=== PATIENT | female | born 1965 | race Caucasian/White ===

== ENCOUNTER 2022-07-13 21:36 | Emergency (ER) | payer OTHER, SELFPAY ==
[2022-07-13 21:41] VITALS: BP 142/86; PULSE 114; RESP 16; TEMP 36.1; O2SAT 98; BMI 37.4
--- NOTE | 2022-07-13 22:10 | CRLHL7_ITS ---
For Patients: As a result of the Cures Act, medical imaging exams and procedure reports are released immediately into your electronic medical record. You may view this report before your referring provider. If you have questions, please contact your health care provider. INDICATION: Sudden onset superior lateral calf and knee pain. COMPARISON: None available. FINDINGS: The left knee was examined with AP and lateral views for a total of two views. There is no sign of fracture or dislocation. The medial and lateral compartments are normal in height. There is a minimal suprapatellar joint effusion. No soft tissue abnormality is seen. IMPRESSION: No sign of acute osseous injury. Minimal suprapatellar joint effusion. Dictated by Suresh Alvarado MD @ 07/13/2022 11:04:16 PM (Electronically Signed)
--- NOTE | 2022-07-13 22:11 | ED_ITS ---
HPI - Extremity Injury (Lower) General Chief Complaint: Extremity Pain/Injury, Lower Stated Complaint: Left knee popped, cannot stand Time Seen by Provider: 07/13/22 22:03 History of Present Illness HPI Narrative: 57-year-old woman presenting with significant other to the emergency department complaint of left knee/lower leg pain. She has been feeling a sense of tightness in the upper outer lower leg over today and was getting assistance from a groundwater programs director to push her chair into the table when must have caught her foot a little bit causing sudden severe pain. She gestures to pain in the areas as mentioned. Hurts to flex and extend her knee. Hurts behind the knee. She does have a history of prior injury to the right knee going down/claiming a ladder when she tore meniscus. No other injuries sustained today. There was no fall. No treatments. Related Data Home Medications Medication Instructions Recorded Confirmed duloxetine 30 mg capsule,delayed mg PO 07/13/22 release omeprazole 20 mg capsule,delayed mg 07/13/22 release Previous Rx's Medication Instructions Recorded levothyroxine 137 mcg tablet 137 mcg PO QDAY #90 tabs 05/17/22 Allergies Allergy/AdvReac Type Severity Reaction Status Date / Time amoxicillin AdvReac Intermediate Nausea Verified 07/13/22 21:45 Sulfa Antibiotics Allergy Intermediate rash, Uncoded 05/18/22 15:09 nausea Clavulanate AdvReac Intermediate Nausea Uncoded 05/18/22 15:09 Review of Systems Status of ROS: Reports: 6 or more systems reviewed and unremarkable except as noted in History and below PFSH PFS Family History (Updated 05/18/22 @ 16:07 by Matti Strickland) Mother Lung cancer Other Kidney disease Social History Smoking Status: Never smoker How often do you have a drink containing alcohol: 2-3 times a week How many standard drinks containing alcohol do you have on a typical day: 3 or 4 How often do you have six or more drinks on one occasion: Less than monthly AUDIT-C Alcohol total score: 5 Non-prescribed substance use: denies use Exam Narrative: Exam Narrative: Pleasant. Seated in a wheelchair. Overweight. Well-healed scars on right knee. Skin generally tanned. No erythema. Breathing easily. Examination of the left leg/knee -- there is a generalized warmth to the knee on the left compared to the right. I thought initially there may be some defect the upper outer calf musculature but this does not feel particularly different than the right leg. Size of legs makes more subtle evaluation more difficulty think. There is no effusion in the knee. She does not have pain to palpation in the joint lines. A little sore to palpation in the anti-geniculate fossa. Little uncomfortable to extend the knee against resistance more painful to flex and especially plantar flex at the ankle. She has pain in the upper calf area. Does not appear to have a defect at the Achilles nor at the tendons of the biceps femoris. No apprehension to patellar manipulation Const: Vital Signs, click to edit/add: Vital Signs - 24 hr 07/13/22 21:41 Temperature 97.0 F L Pulse Rate [Left P ulse Oximeter] 114 H Respiratory Rate 16 Blood Pressure [Ri ght Upper Arm] 142/86 H Pulse Oximetry 98 Oxygen Delivery Me thod Room Air Documenting provider has reviewed patient's vital signs: yes Course Course Hospital Course: Declines ice or other treatments for pain at this time. Reevaluation(s) Reevaluation #1: Placed knee immobilizer and given crutches Vital Signs Vital signs: Initial Vital Signs Temperature 97.0 F L 07/13/22 21:41 Temperature Source Temporal Artery Scan 07/13/22 21:41 Pulse Rate 114 H 07/13/22 21:41 Respiratory Rate 16 07/13/22 21:41 Blood Pressure 142/86 H 07/13/22 21:41 Blood Pressure Mean 104 07/13/22 21:41 Blood Pressure Position Sitting 07/13/22 21:41 Pulse Oximetry 98 07/13/22 21:41 Oxygen Delivery Method 07/13/22 21:41 Vital Signs Temperature 97.0 F L 07/13/22 21:41 Pulse Rate 114 H 07/13/22 21:41 Respiratory Rate 16 07/13/22 21:41 Blood Pressure 142/86 H 07/13/22 21:41 Pulse Oximetry 98 07/13/22 21:41 Oxygen Delivery Method 07/13/22 21:41 Temperature 97.0 F L 07/13/22 21:41 Pulse Rate 114 H 07/13/22 21:41 Respiratory Rate 16 07/13/22 21:41 Blood Pressure 142/86 H 07/13/22 21:41 Pulse Oximetry 98 07/13/22 21:41 Oxygen Delivery Method 07/13/22 21:41 MDM - Extremity Injury (Lower) MDM Narrative Medical decision making narrative: Suspect ruptured Lopez's cyst or more likely strained/torn calf muscle. Does not seem so much an internal knee derangement. Ordered a two view x-ray of the knee is a place to start. The fibular head looks just a little bit rough on the outer aspect but I do not see any acute bony abnormality otherwise. Radiology noting small suprapatellar effusion Medical Records Attestation: I reviewed the patient's medical records. Discharge Plan Discharge Clinical Impression: Acute leg pain, Strain of calf muscle Patient Disposition: Home w/ Parent or Adult Condition: Stable Additional Instructions: Rest this over the next week by using your (this) knee immobilizer and crutches. Just try to avoid things that hurt. Depending on which have been told about NSAIDs related to your kidneys, can take up to 800 mg of ibuprofen per dose or alternatively up to 500 mg of naproxen 2 times daily. Either could be combined with to 1000 mg of acetaminophen. Hydrate. I would call tomorrow to schedule follow-up with orthopedics unless you have a Sports Medicine connection. Orthopedics can be reached at [phone]. I think an exam once things settle down in a few days would be a good idea. See handout on calf strain. Prescriptions: No Action omeprazole 20 mg capsule,delayed release(DR/EC) Label Comments: TAKE ONE CAPSULE BY MOUTH TWICE DAILY duloxetine 30 mg capsule,delayed release(DR/EC) PO Label Comments: TAKE ONE CAPSULE BY MOUTH TWICE DAILY levothyroxine 137 mcg tablet 137 mcg PO QDAY Qty: 90 1RF Stand Alone Forms: [employer] Info Instructions
== END 2022-07-13 23:33 | disposition home or self-care (01) ==
PROVIDERS: Emergency Provider Family Medicine; PCP Physician Assistant Medical
DX: S86.912A Strain of unspecified muscle(s) and tendon(s) at lower leg level, left leg, initial encounter (principal)
CPT/HCPCS: 73560; 99283

== ENCOUNTER 2022-09-06 06:01 | Day surgery (SDC) | payer OTHER, SELFPAY ==
[2022-09-06] VITALS (12 sets, daily range): BP systolic 128–153; BP diastolic 73–103; PULSE 72–87; RESP 12–16; TEMP 36.3–36.9; O2SAT 92–99; BMI 39.6
[2022-09-06] MEDS: LACTATED RINGERS 1000 ML 1,000 ML 100 ML IV (06:30)
[2022-09-06] MEDS: SODIUM CHLORIDE 0.9 % (FLUSH) 10 ML SYRINGE IVF (06:53)
[2022-09-06] MEDS: CEFAZOLIN 2 GM INJ IVP (07:35)
[2022-09-06] MEDS: ROPIVACAINE 0.5% 30 ML 60 MG INJECTION (08:53)
--- NOTE | 2022-09-06 09:08 | W.ANESCHARGE ---
Anesthesia Charges Start Date/Time Anesthesia Start Date: 09/06/22 Anesthesia Start Time: 07:25 Stop Date/Time Anesthesia Stop Date: 09/06/22 Anesthesia Stop Time: 09:07 Summary Emergency: No
[2022-09-06] MEDS: fentaNYL 100 MCG/2 ML inj 50 MCG IVP ×2 (09:21→09:31)
--- NOTE | 2022-09-06 10:19 | P.ORPRC_ITS ---
Procedure Note Date of procedure: 09/06/22 Procedure: SURGEON: Sherif Mckeon MD PRODUCTION SCHEDULER: MORENO Fernández PREOPERATIVE DIAGNOSIS: Left knee medial meniscus root tear POSTOPERATIVE DIAGNOSIS: Left knee medial meniscus root tear NAME OF OPERATION: Left knee arthroscopic medial meniscus root repair ANESTHESIA: General ESTIMATED BLOOD LOSS: 0 mL COMPLICATIONS: None SPECIMENS: None DRAINS: None PREOPERATIVE ANTIBIOTICS: Ancef 2 gram INDICATIONS: The patient is a 57-year-old female with a history of left knee medial pain. MRI scan is consistent with a medial meniscus root tear. Despite appropriate nonoperative management, including activity modification, antiinflammatories, [id number] pain medication, bracing, physical therapy, and injections they continue to have pain and disability. Operative intervention was offered. The risks, benefits and expected outcomes were discussed in detail. These included but were not limited to: Infection, bleeding, injury to blood vessel or nerve, venous thromboembolism. All questions were answered to their satisfaction. PROCEDURE: Spinal anesthesia was administered. The patient was placed supine on the operating room table. The left lower extremity was prepped and draped in the usual sterile fashion. The limb was exsanguinated with the Matthew bandage. The pneumatic tourniquet was inflated to 300 mmHg. A standard anterolateral portal was established. The arthroscope was introduced. The working portal was established anteromedially. Diagnostic arthroscopy was performed with findings as follows: The suprapatellar pouch is normal. Articular surface on the patella is normal. Articular surface on the trochlea shows a focal area of grade 2/3 change distally. The medial gutter is normal. The medial compartment shows grade 1/2 change on both sides of the joint. The medial meniscus has a radial tear of the posterior horn from the leading edge, to the capsule. There is some fibrous tissue in the tear, consistent with an attempt at healing. However, the meniscus is clearly detached from the tibia and unstable with probing. There is an undersurface flap tear of the midbody. The notch shows the ACL to be intact. The lateral compartment shows normal articular cartilage on the lateral femoral condyle and lateral tibial plateau. The lateral meniscus is normal. The lateral gutter is normal. Undersurface of the posterior horn the medial meniscus was debrided with the shaver. Likewise the scar, trying to heal the meniscus was debrided with the shaver. Finally the undersurface of the midbody was resected with the shaver, taken to a stable base. The knee scorpion was used to pass a fiber link x 2 in the posterior horn of the medial meniscus. The tibial drill guide was used over the footprint of the root. A longitudinal incision over the anteromedial face of the tibia was placed. The flip cutter was drilled into the footprint. The flip cutter was flipped and back cut 10 mm. It was removed and exchanged for a fiber stick. The fiber stick was brought out the anteromedial portal and was used to shuttle both of the fiber link luggage tag sutures on the posterior horn out the anteromedial tibia. We then tensioned the sutures and fixed them to the tibia with a SwiveLock anchor. This provided an excellent repair of the posterior tibial attachment of the medial meniscus to its anatomic footprint. The power pick was used to microfracture the notch both medially and laterally. Arthroscopic instruments were removed, the portal sites were Steri-Stripped closed, the incision over the tibia was closed with 3-0 Vicryl and 4-0 Monocryl, the knee was infiltrated with 30 mL of 0.25% Marcaine without epinephrine. A dry dressing was applied, the tourniquet was released. Sponge and needle counts were correct x 2. The patient tolerated the procedure well. There were no apparent complications. They were carefully transferred to the hospital bed and taken to the postanesthesia care unit in satisfactory condition. PLAN: The patient will be discharged to home. She may weightbear as tolerates, using pain as her guide. Range of motion will be allowed from 0-90 degrees x 2 weeks then unrestricted range of motion. They will follow up in 1-2 weeks for a wound check.
[2022-09-06] MEDS: ACETAMINOPHEN 500 MG TABLET 1000 MG PO (10:37)
== END 2022-09-06 11:05 | disposition home or self-care (01) ==
PROVIDERS: PCP Physician Assistant Medical; Visit Provider Orthopaedic Surgery
PROC: (CPT 29870; principal; 2022-09-06 07:30)
DX: M23.222 Derangement of posterior horn of medial meniscus due to old tear or injury, left knee (principal)
CPT/HCPCS: 29882; 01400; A9270; C1713; J0690; J1100; J2250; J2405; J2704; J2795; J3010; J7120

== ENCOUNTER 2022-12-23 10:45 | Outpatient (CLI) | payer OTHER, SELFPAY ==
[2022-12-23 13:16] LABS: Chloride* 106 mmol/L (96-114); Sodium* 139 mmol/L (135-149)
[2022-12-23 13:17] LABS: Potassium* 4.4 mmol/L (3.6-5.1)
[2022-12-23 13:19] LABS: Carbon Dioxide* 28 mmol/L (20-32); Cholesterol* 195 mg/dL (90-199); Creatinine* 0.9 mg/dL (0.5-1.5); Estimated Glomerular Filt Rate 74 ml/min
[2022-12-23 13:20] LABS: Blood Urea Nitrogen* 12 mg/dL (7-30); Calcium* 8.6 mg/dL (8.4-10.6); Glucose* 109 mg/dL (60-115); HDL Cholesterol* 70 mg/dL (>=50); LDL Cholesterol Calculated 96 mg/dL (<100); Triglycerides* 143 mg/dL (40-149)
== END 2022-12-23 10:46 | disposition home or self-care (01) ==
LOC: LKVREF 10:45
PROVIDERS: PCP Physician Assistant Medical; Visit Provider Physician Assistant Medical
DX: Z00.00 Encounter for general adult medical examination without abnormal findings (principal); E03.9 Hypothyroidism, unspecified; E78.5 Hyperlipidemia, unspecified; I10 Essential (primary) hypertension; F41.9 Anxiety disorder, unspecified
CPT/HCPCS: 80048; 80061; 84443

== ENCOUNTER 2023-01-09 15:01 | Outpatient (CLI) | payer OTHER, SELFPAY ==
--- OUTSIDE RECORDS SUMMARY | 2023-01-09 15:03 | XMS_ITS ---
:1965 Author Name LINH PRAKASH Address Unavailable Unavailable , Care Team Providers Name Role Phone MD LINH PRAKASH Attending +1 MD LINH PRAKASH Ordering +1 Allergies and Intolerances Substance Reaction Severity Activated Date Status amoxicillin GI Symptoms Mild 09/14/2021 Active sulfa GI Symptoms Mild 09/14/2021 Active ASSESSMENT Assessment Charted Date/Time No assessment available Encounter Diagnosis Encounter Diagnosis Diagnosis Date/Time Status COVID-19 [U07.1] 09/14/2021 11:41 completed IMMUNIZATIONS Vaccine Administration Date Status Reason Tdap 04/19/2013 Completed Td (adult), adsorbed 06/12/2003 Completed Vital Signs Description Result Charted Date/Time INC Blood Pressure - Systolic mm[Hg] - Sitting - 134 12:44 8480-6 Right arm Blood Pressure - Diastolic mm[Hg] - Sitting 78 08/30 12:44 8462-4 - Right arm MAP mm/Hg 96.67 09/14/2021 12:44 8478-0 Temperature deg F/Joanie 97.3 / 36.3 09/14/2021 12:44 8310-5 Heart Rate /min 83 09/14/2021 12:44 8867-4 Respiration /min 20 09/14/2021 12:44 9279-1 SpO2 % 97 09/14/2021 12:44 76454-5 Medications Administered Medication Start Date Dosage Route Frequency Last Administe red CASIRIVIMAB/IMDEVI 09/14/2021 1200 mg INTRAVENOUS once 08/30 11:58 MAB INJ [600 MG/600 11:42 MG] (REGEN-COV ANTIBODY) IVF NS [NACL 0.9%] 09/14/2021 1 bag IV Infusion continuous 08/30 12:18 250 ML (NORMAL 12:18 SALINE) Social History SOCIAL HISTORY TOBACCO USE TypeStatusStart DateEnd DateLast ReviewedCurrent Smoking StatusTobacco smoking consumption unknownGender Identity and Sexual OrientationTypeStatusLast ReviewedBirth Sex Female 11:40
== END 2023-01-09 15:02 | disposition home or self-care (01) ==
LOC: NFLDREF 15:02
PROVIDERS: PCP Physician Assistant Medical; Visit Provider Internal Medicine Nephrology
DX: N18.1 Chronic kidney disease, stage 1 (principal); R80.9 Proteinuria, unspecified
CPT/HCPCS: 82043; 82570; 87086

== ENCOUNTER 2023-03-07 15:24 | Outpatient (CLI) | payer OTHER, SELFPAY ==
--- NOTE | 2023-03-07 15:20 | CRLHL7_ITS ---
For Patients: As a result of the Cures Act, medical imaging exams and procedure reports are released immediately into your electronic medical record. You may view this report before your referring provider. If you have questions, please contact your health care provider. BILATERAL DIGITAL SCREENING MAMMOGRAM WITH TOMOSYNTHESIS AND COMPUTER-AIDED DETECTION CLINICAL HISTORY: Routine screening exam. COMPARISON: 12/23/2021, 11/18/2020, 03/29/2019, 12/04/2017. TECHNIQUE: Digital mammogram in CC and MLO projections including computer-aided detection (CAD). Tomosynthesis utilized. BREAST COMPOSITION: The breasts are heterogeneously dense, which may obscure small masses. FINDINGS: RIGHT Breast: Nodular density within the lower outer quadrant 8 cm from the nipple. LEFT Breast: No suspicious findings. IMPRESSION: RIGHT breast asymmetry/mass. RECOMMENDATIONS: Additional mammographic views of the RIGHT breast including 3D spot compression CC/MLO. RIGHT breast ultrasound may also be required. BI-RADS Category 0: Incomplete: Need Additional Imaging Evaluation and/or Prior Mammograms for Comparison [facility] will contact the patient for follow-up. A lay language report of this examination will be provided to the patient. Dictated by Rai Benitez MD @ 03/08/2023 9:51:58 AM jj/Dictated by: Rai Benitez MD @ 03/08/2023 9:51:00 AM (Electronically Signed)
--- OUTSIDE RECORDS SUMMARY | 2023-03-07 15:27 | XMS_ITS ---
Author Name LINH PRAKASH Address Unknown Phone 1 Organization Unknown Address Unknown Phone 1 Care Team Providers Care Problem Manager Name Role Phone MD LINH PRAKASH Attending [...] Completed Vital Signs Description Result Charted Date/Time LOINC Blood Pressure - Systolic mm [Hg] - Sitting - Right arm 134 09/14/2021 12:44 8480-6 Blood Pressure - Diastolic m m[Hg] - Sitting - Right arm 78 09/14/2021 12:44 8462-4 MAP mm/Hg 96.67 09/14/2021 12:44 8478-0 Temperature deg F/Joanie 97.3 / 36.3 09/14/2021 12:44 83 10-5 Heart Rate /min 83 09/14/2021 12:44 8867-4 Respiration /min 20 09/14/2021 12:44 9279-1 SpO2 % 97 09/14/2021 12:44 16504-6 Medications Administered Medication Start Date Dosage Route Frequency Last Adm inistered CASIRIVIMAB/IMDEVIMAB INJ [600 MG/600 MG] (REGEN-COV ANTIBODY) 09/14/2021 11:42 1200 mg INTRAVENOUS once 09/14/2021 11:58 IVF NS [NACL 0.9%] 250 ML (NORMAL SALINE) 09/14/2021 12:18 1 bag IV Infusion continuous 09/14/2021 12:18 Social History SOCIAL HISTORY TOBACCO USE TypeStatusStart DateEnd DateLast ReviewedCurrent Smoking StatusTobacco smoking consumption unknownGender Identity and Sexual OrientationTypeStatusLast ReviewedBirth Sex Female 11:40
--- NOTE | 2023-03-07 16:00 | CRLHL7_ITS ---
For Patients: As a result of the Century Cures Act, medical imaging exams and procedure reports are released immediately into your electronic medical record. You may view this report before your referring provider. If you have questions, please contact your health care provider. INDICATION: POSTMENOPAUSAL BLEEDING COMPARISON: 11/03/2021 TECHNIQUE: 2D polk scale and color Doppler images were acquired of the pelvis using a transabdominal and transvaginal approach. FINDINGS: Sonographic images demonstrate a normal size and smooth outer contour of the uterus. Uterus measures 7.2 cm in length by 4.3 cm in AP diameter by 5.0 cm in transverse dimension. The myometrium has a mildly heterogeneous echotexture. The endometrial lining measures 7 mm in composite thickness. The right ovary measures 3.0 x 2.2 x 1.9 cm in size and the left ovary is not visualized. The right ovary demonstrates normal arterial and venous blood flow on color Doppler analysis. There are no suspicious fluid collections within the cul-de-sac. IMPRESSION: Endometrial thickness 7 millimeters. Dictated by Rai Benitez MD @ 03/08/2023 12:55:39 PM (Electronically Signed)
== END 2023-03-07 15:25 | disposition home or self-care (01) ==
LOC: MAMMO 15:25
PROVIDERS: PCP Physician Assistant Medical; Visit Provider Physician Assistant
DX: Z12.31 Encounter for screening mammogram for malignant neoplasm of breast (principal); N63.10 Unspecified lump in the right breast, unspecified quadrant; R92.2 Inconclusive mammogram; N95.0 Postmenopausal bleeding; R93.89 Abnormal findings on diagnostic imaging of other specified body structures
CPT/HCPCS: 76830; 76856; 77063; 77067

== ENCOUNTER 2023-07-11 09:35 | Outpatient (CLI) | payer OTHER, SELFPAY | END 2023-07-11 09:36 | disposition home or self-care (01) | LOC: NFLDREF 07-12 00:31 | PROVIDERS: PCP Physician Assistant Medical; Referring Provider Physician Assistant Medical; Visit Provider Internal Medicine Nephrology | DX: I10 Essential (primary) hypertension (principal); N18.1 Chronic kidney disease, stage 1; R80.9 Proteinuria, unspecified; E78.5 Hyperlipidemia, unspecified; E03.9 Hypothyroidism, unspecified | CPT/HCPCS: 80069; 82043; 82570; 84550; 87086 ==

== ENCOUNTER 2024-01-11 08:35 | Outpatient (CLI) | payer OTHER, SELFPAY | END 2024-01-11 08:36 | disposition home or self-care (01) | LOC: NFLDREF 01-19 08:55 | PROVIDERS: PCP Physician Assistant Medical; Referring Provider Physician Assistant Medical; Visit Provider Physician Assistant Medical | DX: E03.9 Hypothyroidism, unspecified (principal); E78.2 Mixed hyperlipidemia; I10 Essential (primary) hypertension; N18.2 Chronic kidney disease, stage 2 (mild); R31.9 Hematuria, unspecified | CPT/HCPCS: 80061; 80069; 82043; 82570; 82947; 84443; 87086 ==

== ENCOUNTER 2024-02-21 11:45 | Outpatient (CLI) | payer OTHER, SELFPAY ==
--- OUTSIDE RECORDS SUMMARY | 2024-02-21 11:48 | XMS_ITS | Referral Summary ---
Author Name Unknown Organization [facility] Address [address] [place] [id number] Care Team Providers Care Bander [employer] Cell[employer] Machine Helper Name Role Phone Susannah Elizabeth MD Primary Care Provider [phone]- [phone] Allergies Active Allergy Reactions Criticality Noted Date Comments Betamethasone 07/25/2019 Sulfa Antibiotics 11/07/2013 Medications Medication Sig Dispensed Refills Start Date End Date Status OMEPRAZOLE PO Active Sertraline HCl (ZOLOFT PO) Take by mouth daily Acti ve LEVOTHYROXINE SODIUM PO Active atorvastatin (LIPITOR) 20 MG tablet Take 20 mg by mouth 3 06/21/2019 Activ e chlorthalidone (HYGROTON) 25 MG tablet Take 1/2 tab QD 3 06/21/2019 Active VITRON-C 65-125 MG TABS tablet Take 1 tablet (65 mg of iron total) by mouth daily. Do not crush or chew. 3 06/21/2019 Active DULoxetine (CYMBALTA) 30 MG capsule TAKE ONE CAPSULE BY MOUTH DAILY IN ADDITION TO 60MG CAPSULE 0 05/31/2019 Active UNABLE TO FIND MEDICATION NAME: TUMERIC CURCUMIN 500MG QD Active Social History Tobacco Use Types Packs/Day Years Used Date Smoking Tobacco: Never Smokeless Tobacco: Never Alcohol Use Standard Drinks/Week Comments Yes 0 (1 standard drink = 0.6 oz pur e alcohol) PHQ-2 Answer Date Recorded PHQ-2 Score 1 07/25/2019 Sex and Gender Information Value Date Recorded Sex Assigned at Not on file Gender Identity Not on file Sexual Orientation Not on file Last Filed Vital Signs Vital Sign Reading Time Taken Comments Blood Pressure 142/85 07/25/2019 8:26 AM CDT Pulse 77 07/25/2019 8:26 AM CDT Temperature 36.9 ??C (98.4 ??F) 11/07/2013 1:02 PM CS T Respiratory Rate 16 11/07/2013 2:15 PM AG EQUIPMENT FIELD SERVICE TECHNICIAN Oxygen Saturation 97% 07/25/2019 8:26 AM CDT Inhaled Oxygen Concentration - - Weight 99.9 kg (220 lb 3.2 oz) 07/25/2019 8:26 A M CDT Height 165.1 cm (5' 5) 07/25/2019 8:26 AM CDT Body Mass Index 36.64 07/25/2019 8:26 AM CDT Plan of Treatment Not on file Care Teams [employer] Machine Helper Relationship Specialty Start Date End Date Susannah Elizabeth MD PCP - General Family Practice 11/07/13
--- OUTSIDE RECORDS SUMMARY | 2024-02-21 11:48 | XMS_ITS | Encounter Summary ---
Author Name Unknown Organization [facility] Address [address] [place] [id number] Care Team Providers Care Toll Collector Supervisor Name Role Phone Elsewhere, Pcp Primary Care Provider Unavailabl e Reason for Visit * Appointment Request (Routine) - Closed Specialty Diagnoses / Procedures Referred By Contac t Referred To Contact Nephrology and Hypertension Referral ID Status Reason Start Date Expiration Date Visits Re quested Visits Authorized [id number] Closed 12/28/2023 12/27/2024 1 1 Encounter Details Date Type Department Care Team (Latest Contact Info) Description 01/16/2024 9:00 AM CDT External Outreach Division of Nephrology and Hypertension in [place], [place] [address] [place] [phone] Jayne Hodges M.D., Ph.D. [address] [place] [phone] Hypertension And Chronic Kidney Disease Stage 2 (Primary Dx); Proteinuria; Hematuria Social History Tobacco Use Types Packs/Day Years Used Date Smoking Tobacco: Never Smokeless Tobacco: Never Alcohol Use Standard Drinks/Week Comments Yes 6 (1 standard drink = 0.6 oz pur e alcohol) socially Humiliation, Afraid, Rape, and Kick questionnair e Answer Date Recorded Within the last year, have y ou been afraid of your partner or ex-partner? No 06/01/2023 Within the last year, have y ou been humiliated or emotionally abused in other ways by your partner or ex-partner? No Within the last year, have y ou been kicked, hit, slapped, or otherwise physically hurt by your partner or ex-partner? No 06/01/2023 Within the last year, have y ou been raped or forced to have any kind of sexual activity by your partner or ex-partner? No 06/01/2023 Overall Financial Resource Strain (CARDIA) Answe r Date Recorded How hard is it for you to pa y for the very basics like food, housing, medical care, and heating? Not hard at all 06/01/2023 Exercise Vital Sign Answer Date Recorde d On average, how many days pe r week do you engage in moderate to strenuous exercise (like a brisk walk)? 1 day 06/01/2023 On average, how many minutes do you engage in exercise at this level? 10 min 06/01/2023 Hunger Vital Sign Answer Date Recorded Within the past 12 months, y ou worried that your food would run out before you got the money to buy more. Never true 06/01/20 Within the past 12 months, t he food you bought just didn't last and you didn't have money to get more. Never true 06/01/2023 PRAPARE - Transportation Answer Date Re corded In the past 12 months, has l ack of transportation kept you from medical appointments or from getting medications? No 12/2022 In the past 12 months, has l ack of transportation kept you from meetings, work, or from getting things needed for daily living? No 06/01/2023 Nutrition Answer Date Recorded Nutrition: EVOO Fat Source Unknown 06/01 On average, how many serving s of fruits and vegetables do you eat per day (serving size is equal to 1 cup or approximately the size of a tennis ball)? 0-2 06/01/2023 Dental Answer Date Recorded Dental: Regular Dentist Yes 06/01/20 Employment Answer Date Recorded Employment status Employed and actively working without restrictions 06/01/2023 Housing Stability Answer Date Recorded What is your living situation today? I have a [facility] place to live 06/01/2023 Sex and Gender Information Value Date Recorded Sex Assigned at Female 06/01/2023 11:10 AM CDT Gender Identity Female 06/01/2023 11:10 AM CDT Sexual Orientation Straight 06/01/2023 11 :10 AM CDT documented as of this encounter Progress Notes * Jayne Hodges M.D., Ph.D. - 01/16/2024 9:00 AM CDT PROGRESS NOTE SUBJECTIVE CHIEF COMPLAINT / REASON FOR VISIT Hypertension, mild proteinuria, chronic mild hematuria, CKD 2 [facility] outreach visit Location: [facility] HISTORY OF PRESENT ILLNESS Chantel Ye is a 58 y.o. female is seen for follow up. 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 She has been doing well and does not have any current concerns. She follows a low salt diet. No NSAIDs use. Her BP at home ranges in the 120s-130s/60s-80s. Her current therapy includes olmesartan 20 mg/HCTZ 12.5 mg daily. Patient has not noticed any lightheadedness, dizziness, vision changes, diaphoresis, chest pain, difficulty breathing, or edema. Patient has not noticed any changes in urinary habits. No hesitancy tourinate, no difficulty to urinate. OBJECTIVE BP 128/78 Pulse 93 PHYSICAL EXAMINATION Vitals reviewed. Constitutional Appearance: Normal appearance. HENT Head: Normocephalic and atraumatic. Cardiovascular Rate and Rhythm: Normal rate and regular rhythm. Pulmonary Effort: Pulmonary effort is normal. Breath sounds: Normal breath sounds. Abdominal Palpations: Abdomen is soft. Neurological General: No focal deficit present. Mental Status: She is alert. Mental status is at baseline. Psychiatric Mood and Affect: Mood normal. DIAGNOSTICS I have reviewed available labs in detail with patient. ASSESSMENT / PLAN #1 Hypertension And Chronic Kidney Disease Stage 2 #2 Proteinuria #3 Chronic mild microscopic hematuria Patient returns for follow up. Kidney function remains stable. Estimated GFR is 85. Mild proteinuria at 90 (down from 210 ACR). Mild hematuria 2-5 RBCs. No metabolic acid-base disorder. No mineral bone disease. Mild anemia, I have recommended iron studies. She has an appointment with her PCP, Inna Burnett, and will discuss this with them. BP goal is systolic readings between 100-130 mmHg and diastolic readings between 60-80 mmHg. I haverecommended patient to check BP regularly at home, to keep a record of blood pressure readings. If BP is still not at goal, medications should be adjusted. As a next step, if needed for BP control, I would recommend increasing olmesartan to 30 mg daily ifBP remains elevated. She will check at home and keep us posted. No change made today. BP is at goal. Return visit in 1 year, she will have repeat uACR done in 6 months through her PCP visits. Sylvia Morgan M.D., Ph.D. documented in this encounter Plan of Treatment Not on file documented as of this encounter Visit Diagnoses Diagnosis Hypertension And Chronic Kidney Disease Stage 2- Primary Proteinuria Hematuria documented in this encounter Care Teams Toll Collector Supervisor Relationship Specialty Start Date End Date Elsewhere, Pcp PCP - General Internal Medicine 06/06/23 documented as of this encounter
--- OUTSIDE RECORDS SUMMARY | 2024-02-21 11:48 | XMS_ITS ---
Author Name Unknown Organization [facility] Address [address] [place] [address] Care Team Providers Care Instrument Fitter Name Role Phone Unavailable Unavailable Unavailable Surgery Details Not on file Complications Check Surgery Details section. Procedure Estimated Blood Loss Check Surgery Details section. Procedure Findings Check Surgery Details section. Procedure Specimens Taken Check Surgery Details section.
--- OUTSIDE RECORDS SUMMARY | 2024-02-21 11:48 | XMS_ITS | Referral Summary ---
Author Name Unknown Organization [facility] Address [address] [place] [id number] Care Team Providers Care Auto Body Man Name Role Phone Elsewhere, Pcp Primary Care Provider Unavailabl e Source Comments Patient records contain information from all sites at [facility]. For routine questions regarding patient records, call [phone] during business hours, M-F 8:00 AM - 5:00 PM Central Time. Record requests for emergency care only can be directed to [phone] at any time.[facility] Encounters Date Type Department Care Team Description 01/16/2024 9:00 AM CDT External Outreach Division of Nephrology and Hypertension in [address] [phone] Jayne Hodges M.D., Ph.D. Hypertension And Chronic Kidney Disease Stage 2 (Primary Dx); Proteinuria; Hematuria from Last 3 Months Allergies Active Allergy Reactions Criticality Noted Date Comments Amoxicillin Other (see comments) ,GI intolerance High 06/23/2017 Nausea Betamethasone Other (see comments) 07/25/2019 Clavulanic Acid Other (see comments) ,GI intolerance 06/23/2017 Nausea Oxycodone GI intolerance 04/12/2023 Sulfa (Sulfonamide Antibiotics) Rash 06/23/2017 Nausea Medications Medication Sig Dispensed Refills Start Date End Date Status levothyroxine (SYNTHROID, LEVOTHROID) 137 mcg tablet Take 1 tablet by mouth daily. 06/23/2017 Active omeprazole (PriLOSEC) 20 mg capsule Take 1 capsule by mouth 2 (two) times a day. 06/23/2017 Active DULoxetine (CYMBALTA) [address] capsule TAKE ONE CAPSULE BY MOUTH TWICE DAILY* 03/18/2023 Active metroNIDAZOLE (METROCREAM) 0.75 % cream Apply 1 Application topically as needed. rosacea 12/30/2022 Active UNABLE TO FIND Take 1 each by mouth daily. Med Name: Cholesterol Complete Vitamin Active olmesartan-hydroCHLO ROthiazide (BENICAR HCT) 20-12.5 mg per tablet Take 1 tablet by mouth daily. 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 Never true 06/01/20 23 Within the past 12 months, t he [...] your living situation today? I have a [facility] place to live 06/01/2023 Sex and Gender Information Value Date Recorded Sex Assigned at Female 06/01/2023 11:10 AM CDT Gender Identity Female 06/01/2023 11:10 AM CDT Sexual Orientation Straight 06/01/2023 11 :10 AM CDT Last Filed Vital Signs Vital Sign Reading Time Taken Comments Blood Pressure 138/60 04/12/2023 1:07 PM CDT Pulse 80 04/12/2023 1:07 PM CDT Temperature 36.3 ??C (97.3 ??F) 04/12/2023 12:42 PM C DT Respiratory Rate 16 04/12/2023 1:07 PM CDT Oxygen Saturation 94% 04/12/2023 1:07 PM CDT Inhaled Oxygen Concentration - - Weight 110 kg (242 lb 4.6 oz) 06/08/2023 10:16 A M CDT Height 161.8 cm (5' 3.7) 06/08/2023 10:16 AM CD T Body Mass Index 41.98 06/08/2023 10:16 AM CDT Plan of Treatment Not on file Procedures Procedure Name Priority Date/Time Associated Diagnosis Comments BASIC METABOLIC PANEL, S/P Routine 04/07/2023 3:57 PM CDT Preanesthetic Medical Exam Hyperplasia Endometrial With Atypia Hypertension And Chronic Kidney Disease Stage 1 from Last 3 Months or Most Recently Relevant to Health Maintenance Results * Basic Metabolic Panel (04/07/2023 3:57 PM CDT) Potassium, S 3.8 3.6 - 5.2 mmol/L 04/07/2023 4:48 PM CDT DTL Sodium, S 140 135 - 145 mmol/L 04/07/2023 4:48 PM CDT DTL Chloride, S 103 98 - 107 mmol/L 04/07/2023 4:48 PM CDT DTL Bicarbonate, S 24 22 - 29 mmol/L 04/07/2023 4:48 PM CDT DTL Anion Gap 13 7 - 15 04/07/2023 4:48 PM CDT DTL BUN (Blood Urea Nitrogen), S 12 6 - 21 mg/dL 04/07/2023 4:48 PM CDT DTL Creatinine 0.89 0.59 - 1.04 mg/dL 04/07/2023 4:48 PM CDT DTL Estimated GFR (eGFR) 75 >=60 mL/min/BSA 04/07/2023 4:48 PM CDT DTL Comment: Estimated GFR calculated using the 2020 CKD_EPI creatinine equation. Calcium, Total, S 8.8 8.6 - 10.0 mg/dL 04/07/2023 4:48 PM CDT DTL Glucose, S 102 70 - 140 mg/dL 04/07/2023 4:48 PM CDT DTL Blood (Blood, Venous) 04/07/2023 3:57 PM CDT 04/07/2023 4:31 PM CDT James Staley APRN, C.N.P., M.S. LAB BLO OD ADD-ON [facility] [address] [place] [address], [place] DTL [facility] [address] [place] [address] from Last 3 Months or Most Recently Relevant to Health Maintenance Advance Directives For more information, please contact: [phone] * Full Code (Latest Code Status on File) Date Activated Date Inactivated Comments 04/12/2023 12:20 PM 04/12/2023 3:53 PM Question Answer Comments Full Code: Not Discussed Due to: Patient not available * Full Code Date Activated Date Inactivated Comments 04/12/2023 5:57 AM 04/12/2023 12:20 PM Question Answer Comments Full Code: Discussed Care Teams Auto Body Man Relationship Specialty Start Date End Date Elsewhere, Pcp PCP - General Internal Medicine 06/06/23
--- OUTSIDE RECORDS SUMMARY | 2024-02-21 11:48 | XMS_ITS | Clinical Summary ---
Author Name Unknown Organization [facility] Address [address] [place] [address] Care Team Providers Care Paster Operator Name Role Phone Susannah Elizabeth MD Primary Care Provider [phone] Allergies Active Allergy Reactions Criticality Noted Date [...] T Respiratory Rate 16 11/07/2013 2:15 PM TANK WORKER Oxygen Saturation 97% 07/25/2019 8:26 AM CDT Inhaled Oxygen Concentration - - Weight 99.9 kg (220 lb 3.2 oz) 07/25/2019 8:26 A M CDT Height 165.1 cm (5' 5) 07/25/2019 8:26 AM CDT Body Mass Index 36.64 07/25/2019 8:26 AM CDT Plan of Treatment Not on file Care Teams Paster Operator Relationship Specialty Start Date End Date Susannah Elizabeth MD PCP - General Family Practice 11/07/13
--- OUTSIDE RECORDS SUMMARY | 2024-02-21 11:48 | XMS_ITS | Clinical Summary ---
Author Name Unknown Organization [facility] Address [address] [place] [address] Care Team Providers Care State Trooper Name Role Phone Elsewhere, Pcp Primary Care Provider Unavailabl e Source Comments Patient records contain information from all sites at [facility]. For routine questions regarding patient records, call [phone] during business hours, M-F 8:00 AM - 5:00 PM Central Time. Record requests for emergency care only can be directed to [phone] at any time.[facility] Allergies Active Allergy Reactions Criticality Noted Date [...] And Chronic Kidney Disease Stage 1 11/22/2017 Encounters Date Type Department Care Team Description 01/16/2024 9:00 AM CDT External Outreach Division of Nephrology and Hypertension in [place], [place] [address] [place] [address] Jayne Hodges M.D., Ph.D. Hypertension And Chronic Kidney Disease Stage 2 (Primary Dx); Proteinuria; Hematuria from Last 3 Months Family History Medical History Relation Name Comments Alcohol abuse Father Antony Hood Kidney disease Father Antony Hood Arthritis Maternal Grandfather Gricelda Ko Depression Maternal Grandfather Gricelda Ko Hyperlipidemia Maternal Grandfather Gricelda Ko ADD Mother Mireya Prather Depression Mother Mireya Prather Drug abuse Mother Mireya Prather Hyperlipidemia Mother Mireya Prather Lung cancer Mother Mireya Prather Diabetes Paternal Grandmother Roxanna Hood Psychiatric Paternal Grandmother Roxanna Hood Relation Name Status Comments Father Antony Hood Maternal Grandfather Gricelda Ko Mother Mireya Prather Paternal Grandmother Roxannaclay Hood Social History Tobacco Use Types Packs/Day Years [...] your living situation today? I have a [facility] place to live 06/01/2023 Sex and [...] 06/08/2023 10:16 AM CDT Plan of Treatment Health Maintenance Due Date Last Done Comments CT Colonography 1964 Cologuard 1964 FIT 1964 HIV Screening 1964 Hepatitis C Screening 1964 Lipid (Cholesterol) Screening 1964 Mammogram 1964 Thyroid Stimulating Hormone (TSH) test for thyroid function 1964 Hepatitis B Vaccines (1 of 3 - 19+ 3-dose series) 1983 Zoster Vaccines (1 of 2) 1983 COVID-19 Vaccine ( - 2022-2 4 season) 2023 Influenza Vaccine (#1) 2023 Depression Screening (Annual PHQ-2) 10/30/2023 Creatinine Level (Kidney Function Test) 04/07/2024 04/07/2023 Potassium Level 04/07/2024 04/07/2023 Sodium Level 04/07/2024 04/07/2023 Office Visit for Blood Pressure Check / Re-check 04/10/2024 04/10/2023 Colonoscopy 07/20/2025 07/20/2015 Colorectal Cancer Screening 07/20/2025 Fasting Glucose for Diabetes Screening 04/07/2026 04/07/2023 DTaP,Tdap,and Td Vaccines (3 - Td or Tdap) 12/26/2032 12/26/2022, 04/19/2013, 06/12/2003 Pneumococcal vaccine (0-64 years) Aged Out No longer eligible b ased on patient's age to complete this topic Procedures Procedure Name Priority Date/Time Associated Diagnosis [...] CDT 04/07/2023 4:31 PM CDT James Staley APRN C.N.P., M.S. LAB BLO OD ADD-ON [place] [address] [place], [place] [address] DTL [facility] [address] [place] [address] from Last 3 Months or Most Recently Relevant to Health Maintenance Advance Directives For more information, please contact: [phone] * Full Code (Latest Code Status on File) Date Activated Date Inactivated Comments 04/12/2023 12:20 PM 04/12/2023 3:53 PM Question Answer Comments Full Code: Not Discussed Due to: Patient not available * Full Code Date Activated Date Inactivated Comments 04/12/2023 5:57 AM 04/12/2023 12:20 PM Question Answer Comments Full Code: Discussed Care Teams State Trooper Relationship Specialty Start Date End Date Elsewhere, Pcp PCP - General Internal Medicine 06/06/23
--- OUTSIDE RECORDS SUMMARY | 2024-02-21 11:48 | XMS_ITS ---
Author Name LINH PRAKASH Address Unknown Phone 1 Organization Unknown Address Unknown Phone 1 Care Team Providers Care Division Traffic Superintendent Name Role Phone MD LINH PRAKASH Attending [...] 12:44 [id number] SpO2 % 97 09/14/2021 12:44 [id number] Medications Administered Medication Start Date Dosage Route [...]
--- OUTSIDE RECORDS SUMMARY | 2024-02-21 11:48 | XMS_ITS | Clinical Summary ---
Author Name Unknown Organization [facility] Address [place], [place] [address] Care Team Providers Care Foot Miter Operator Name Role Phone Susanna Shipley NP Primary Care Provider [phone] Active Problems Problem Noted Date Diagnosed Date Routine adult health maintenance 07/20/2015 Overview: Colonoscopy 06/2015 diverticulosis repeat in 10 years Social History Tobacco Use Types Packs/Day Years Used Date Smoking Tobacco: Never Assessed Sex and Gender Information Value Date Recorded Sex Assigned at Not on file Gender Identity Not on file Sexual Orientation Not on file Obstetrics History Plan of Treatment Health Maintenance Due Date Last Done Comments Tdap 1975 Depression screening for age 12+ 1976 HIV for age 15-65 1979 BMI (ht and wt on same day) for age 18+ 1982 Hepatitis C screening for ag e 18-79 1982 Tetanus booster 1984 Lipids for age 45-75 2009 Mammogram for age 45-75 2009 Zoster (shingles) series for age 50+ (1 of 2) 2014 COVID-19 vaccine series (2022- season) 2023 Influenza for age 50-64 06/30/2024 Pap test for age 21-65 11/01/2024 , 11/01/2021, 11/30/2017 Colonoscopy through age 75 07/20/202507/20, 07/20/2015, 07/20/2015 Pneumococcal series for age 6-64 Aged Out No longer eligible b ased on patient's age to complete this topic Procedures Procedure Name Priority Date/Time Associated Diagnosis Comments HPV THIN PREP Routine 11/01/2021 12:00 PM EMERGENCY DEPT TECH COLONOSCOPY SCREENING Routine 07/20/2015 12:00 AM CDT Special screening for malignant neoplasms, colon from Last 3 Months or Most Recently Relevant to Health Maintenance Results * HPV HIGH RISK (11/01/2021 12:00 PM EMERGENCY DEPT TECH) TYPE 16 Negative Negative 11/03/2021 11:56 AM EMERGENCY DEPT TECH [facility] TYPE 18 Negative Negative 11/03/2021 11:56 AM EMERGENCY DEPT TECH [facility] OTHER HIGH RISK TYPES Negative Negative 11/03/2021 11:56 AM EMERGENCY DEPT TECH [facility] Other (Cervical/Vagina l) 11/01/2021 12:00 PM EMERGENCY DEPT TECH 11/02/2021 8:25 AM EMERGENCY DEPT TECH Narrative [facility] - 11/03/2021 11:56 AM EMERGENCY DEPT TECH HPV types 16, 18, 31, 33, 35, 39, 45, 51, 52, 56, 58, 59, 66 and 68 DNA were undetectable or below the pre-set threshold. Methodology: Jose Juan Sena 4800 HPV Test Marie Shahbaz HALL MICROBIOLOGY [facility] [address] [place] [address], * COLONOSCOPY SCREENING (07/20/2015 12:00 AM CDT) Matthew Stover MD GI PROCEDURE ORD from Last 3 Months or Most Recently Relevant to Health Maintenance Care Teams Foot Miter Operator Relationship Specialty Start Date End Date Susanna Shipley NP [address] [place] [address] PCP - General Nurse Practitioner 07/01/15
== END 2024-02-21 11:46 | disposition home or self-care (01) ==
PROVIDERS: PCP Physician Assistant Medical; Visit Provider Physician Assistant Medical
DX: D64.9 Anemia, unspecified (principal)
CPT/HCPCS: 82607; 82747; 83540; 83550

== ENCOUNTER 2024-04-10 15:03 | Outpatient (CLI) | payer OTHER, SELFPAY ==
--- OUTSIDE RECORDS SUMMARY | 2024-04-10 15:05 | XMS_ITS ---
Author Organization [facility] Address [address] [place] [address] Care Team Providers Care Analytical Chemistry Teacher Name Role Phone Unavailable Unavailable Unavailable Surgery Details Not on file Complications Check Surgery Details section. Procedure Estimated Blood Loss Check Surgery Details section. Procedure Findings Check Surgery Details section. Procedure Specimens Taken Check Surgery Details section.
--- OUTSIDE RECORDS SUMMARY | 2024-04-10 15:05 | XMS_ITS | Clinical Summary ---
Author Organization [facility] Address [address] [place] [address] Care Team Providers Care Geothermal Powerplant Mechanic Name Role Phone Elsewhere, Pcp Primary Care Provider Unavailabl e Source Comments Patient records contain information from all sites at [facility]. For routine questions regarding patient records, call [phone] during business hours, M-F 8:00 AM - 5:00 PM Central Time. Record requests for emergency care only can be directed to [phone] at any time.[facility] Allergies Active Allergy Reactions Criticality Noted Date [...] Outreach Division of Nephrology and Hypertension in [place], [place] [address] [place] [address] Jayne Hodges M.D., Ph.D. Hypertension And Chronic [...] cancer Mother Mireya Prather Diabetes Paternal Grandmother Roxannalacey Hood Psychiatric Paternal Grandmother Roxanna Hood Relation [...] your living situation today? I have a [facility] place to live 06/01/2023 Sex and Gender [...] APRN C.N.P., M.S. LAB BLO OD ADD-ON [facility] [address] [place] [address], [facility] [address] [place] [address] from Last 3 Months or Most Recently Relevant to Health Maintenance Advance Directives For more information, please contact: [phone] * Full Code (Latest Code Status on File) Date Activated Date Inactivated Comments 04/12/2023 12:20 PM 04/12/2023 3:53 PM Question Answer Comments Full Code: Not Discussed Due to: Patient not available * Full Code Date Activated Date Inactivated Comments 04/12/2023 5:57 AM 04/12/2023 12:20 PM Question Answer Comments Full Code: Discussed Care Teams Geothermal Powerplant Mechanic Relationship Specialty Start Date End Date Elsewhere, Pcp PCP - General Internal Medicine 06/06/23
--- OUTSIDE RECORDS SUMMARY | 2024-04-10 15:05 | XMS_ITS | Referral Summary ---
Author Organization [facility] Address [address] [place] [address] Care Team Providers Care Case Maker Name Role Phone Elsewhere, Pcp Primary Care Provider Unavailabl e Source Comments Patient records contain information from all sites at [facility]. For routine questions regarding patient records, call [phone] during business hours, M-F 8:00 AM - 5:00 PM Central Time. Record requests for emergency care only can be directed to [phone] at any time.[facility] Encounters Date Type Department Care Team Description 01/16/2024 9:00 AM CDT External Outreach Division of Nephrology and Hypertension in [place], [place] [address] [place] [phone] Jayne Hodges M.D., Ph.D. Hypertension And Chronic [...] your living situation today? I have a [facility] place to live 06/01/2023 Sex and [...] APRN, C.N.P., M.S. LAB BLO OD ADD-ON [facility] [address] [place] [address], [place] D[place] [facility] [address] [place] [address] from Last 3 Months or Most Recently Relevant to Health Maintenance Advance Directives For more information, please contact: [phone] * Full Code (Latest Code Status on File) Date Activated Date Inactivated Comments 04/12/2023 12:20 PM 04/12/2023 3:53 PM Question Answer Comments Full Code: Not Discussed Due to: Patient not available * Full Code Date Activated Date Inactivated Comments 04/12/2023 5:57 AM 04/12/2023 12:20 PM Question Answer Comments Full Code: Discussed Care Teams Case Maker Relationship Specialty Start Date End Date Elsewhere, Pcp PCP - General Internal Medicine 06/06/23
--- OUTSIDE RECORDS SUMMARY | 2024-04-10 15:06 | XMS_ITS | Clinical Summary ---
Author Organization [facility] Address [place], [place] [address] Care Team Providers Care Crib Tender Name Role Phone Susanna Shipley NP Primary Care Provider [phone] Active Problems Problem Noted Date Diagnosed Date [...] (1 of 2) 2014 COVID-19 vaccine series (2022-24 season) 2023 Influenza for age 50-64 06/30/2024 Pap test for age 21-65 11/01/2024 , 11/01/2021, 11/30/2017 Colonoscopy through age 75 07/20/202507/20, 07/20/2015, 07/20/2015 Pneumococcal series for age 6-64 Aged Out No longer eligible b ased on patient's age to complete this topic Procedures Procedure Name Priority Date/Time Associated Diagnosis Comments HPV THIN PREP Routine 11/01/2021 12:00 PM WEB PRODUCTION DESIGNER COLONOSCOPY SCREENING Routine 07/20/2015 12:00 AM CDT Special screening for malignant neoplasms, colon from Last 3 Months or Most Recently Relevant to Health Maintenance Results * HPV HIGH RISK (11/01/2021 12:00 PM WEB PRODUCTION DESIGNER) TYPE 16 Negative Negative 11/03/2021 11:56 AM WEB PRODUCTION DESIGNER [facility] TYPE 18 Negative Negative 11/03/2021 11:56 AM WEB PRODUCTION DESIGNER [facility] LAB[facility] OTHER HIGH RISK TYPES Negative Negative 11/03/2021 11:56 AM WEB PRODUCTION DESIGNER [facility] Other (Cervical/Vagina l) 11/01/2021 12:00 PM WEB PRODUCTION DESIGNER 11/02/2021 8:25 AM WEB PRODUCTION DESIGNER Narrative [facility] - 11/03/2021 11:56 AM WEB PRODUCTION DESIGNER HPV types 16, 18, 31, 33, 35, 39, 45, 51, 52, 56, 58, 59, 66 and 68 DNA were undetectable or below the pre-set threshold. Methodology: Jose Juan Sena 4800 HPV Test January Shahbaz HALL MICROBIOLOGY [facility] [address] [place] [address], * COLONOSCOPY SCREENING (07/20/2015 12:00 AM CDT) Matthew Stover MD GI PROCEDURE ORD from Last 3 Months or Most Recently Relevant to Health Maintenance Care Teams Crib Tender Relationship Specialty Start Date End Date Susanna Shipley NP [address] [place] [address] PCP - General Nurse Practitioner 07/01/15
--- OUTSIDE RECORDS SUMMARY | 2024-04-10 15:06 | XMS_ITS ---
Author Name LINH PRAKASH Address Unknown Phone 1 Organization Unknown Address Unknown Phone 1 Care Team Providers Care Nailing Machine Feeder Name Role Phone MD LINH PRAKASH Attending [...] 12:44 9279-1 SpO2 % 97 09/14/2021 12:44 17232-1 Medications Administered Medication Start Date Dosage Route [...]
--- OUTSIDE RECORDS SUMMARY | 2024-04-10 15:06 | XMS_ITS | Encounter Summary ---
Author Organization [facility] Address [address] [place] [address] Care Team Providers Care Accounting Technician Name Role Phone Elsewhere, Pcp Primary Care Provider Unavailabl e Reason for Visit * Appointment Request (Routine) - Closed Specialty Diagnoses / Procedures Referred By Contac t Referred To Contact Nephrology and Hypertension Referral ID Status Reason Start Date Expiration Date Visits Re quested Visits Authorized [id number] Closed 12/28/2023 12/27/2024 1 1 Encounter Details Date Type Department Care Team (Latest Contact Info) Description 01/16/2024 9:00 AM CDT External Outreach Division of Nephrology and Hypertension in [place], [place] [address] [place] [phone] Jayne Hodges M.D., Ph.D. [address] [place] [phone] Hypertension And Chronic Kidney Disease Stage 2 [...] your living situation today? I have a [facility] place to live 06/01/2023 Sex and [...] mild proteinuria, chronic mild hematuria, CKD 2 [facility] [place] outreach visit Location: [facility] HISTORY OF PRESENT ILLNESS Chantel Ye is [...] Hematuria documented in this encounter Care Teams Accounting Technician Relationship Specialty Start Date End Date Elsewhere, Pcp PCP - General Internal Medicine 06/06/23 documented as of this encounter
--- NOTE | 2024-04-10 15:20 | CRLHL7_ITS ---
For Patients: As a result of the Century Cures Act, medical imaging exams and procedure reports are released immediately into your electronic medical record. You may view this report before your referring provider. If you have questions, please contact your health care provider. BILATERAL SCREENING MAMMOGRAM WITH COMPUTER-AIDED DETECTION AND TOMOSYNTHESIS TECHNIQUE: CC and MLO views were obtained. These mammographic images have been obtained using full-field digital technique. These mammographic images were interpreted with the benefit of computer-aided detection. Breast Tomosynthesis was used in this interpretation. COMPARISON FILM: 03/15/23, 03/07/23, 12/23/21. FINDINGS: The breasts are heterogeneously dense, which may obscure small masses. IMPRESSION: There is no radiographic evidence for malignancy. ASSESSMENT: BI-RADS Category 2: Benign RECOMMENDATION: Routine screening mammogram in 1 year. A lay language report of this examination will be provided to the patient. Rai Benitez M.D. Diagnostic Radiologist [email or web address] SP/Dictated by: Rai Benitez MD @ 04/15/2024 10:58:00 AM (Electronically Signed)
== END 2024-04-10 15:04 | disposition home or self-care (01) ==
LOC: MAMMO 15:04
PROVIDERS: PCP Physician Assistant Medical; Visit Provider Physician Assistant Medical
DX: Z12.31 Encounter for screening mammogram for malignant neoplasm of breast (principal); R92.2 Inconclusive mammogram
CPT/HCPCS: 77063; 77067

== ENCOUNTER 2024-07-04 11:39 | Outpatient (CLI) | payer OTHER, SELFPAY ==
--- OUTSIDE RECORDS SUMMARY | 2024-07-04 11:42 | XMS_ITS | Referral Summary ---
Author Organization [facility] Address [address] [place] [address] Care Team Providers Care White Spooler Name Role Phone Susannah Elizabeth MD Primary Care Provider [phone] Allergies Active Allergy Reactions Criticality Noted Date [...] T Respiratory Rate 16 11/07/2013 2:15 PM PACKING MACHINE FEEDER Oxygen Saturation 97% 07/25/2019 8:26 AM CDT Inhaled Oxygen Concentration - - Weight 99.9 kg (220 lb 3.2 oz) 07/25/2019 8:26 A M CDT Height 165.1 cm (5' 5) 07/25/2019 8:26 AM CDT Body Mass Index 36.64 07/25/2019 8:26 AM CDT Plan of Treatment Not on file Care Teams White Spooler Relationship Specialty Start Date End Date Susannah Elizabeth MD PCP - General Family Practice 11/07/13
--- OUTSIDE RECORDS SUMMARY | 2024-07-04 11:42 | XMS_ITS | Clinical Summary ---
Author Organization [facility] Address [address] [place] [address] Care Team Providers Care Yard Specialist Name Role Phone Elsewhere, Pcp Primary Care Provider Unavailabl e Source Comments Patient records contain information from all sites at [facility]. For routine questions regarding patient records, call [phone] during business hours, M-F 8:00 AM - 5:00 PM Central Time. Record requests for emergency care only can be directed to [phone] at any time.[facility] Allergies Active Allergy Reactions Criticality Noted [...] Acquired 01/09/2023 Deficiency Iron 04/08/2020 Proteinuria 12/05/2018 Hypertensive Chronic Kidney Disease With Stage 1 Through Stage 4 Chronic Kidney Disease, Or Unspecified Chronic Kidney Disease 11/22/2017 Family History Medical History Relation Name Comments Alcohol abuse Father Antony Hood Kidney disease Father Antony Hood Arthritis Maternal Grandfather Gricelda Ko Depression Maternal Grandfather Gricelda Ko Hyperlipidemia Maternal Grandfather Gricelda Ko ADD Mother Mireya Prather Depression Mother Mireya Prather Drug abuse Mother Mireya Prather Hyperlipidemia Mother Mireya Prather Lung cancer Mother Mireya Prather Diabetes Paternal Grandmother Roxannaclay Muellerter Psychiatric Paternal Grandmother Roxanna Hood Relation Name Status Comments Father Antony Hood Maternal Grandfather Gricelda Ko Mother Mireya Prather Paternal Grandmother Roxanna Hood Social History Tobacco Use Types Packs/Day [...] your living situation today? I have a [facility] place to live 06/01/2023 Sex and Gender [...] Hormone (TSH) test for thyroid function 1964 Zoster Vaccines (1 of 2) 1983 Depression Screening (Annual PHQ-2) 10/30/2023 Creatinine Level (Kidney Function Test) 04/07/2024 04/07/2023 Potassium Level 04/07/2024 04/07/2023 Sodium Level 04/07/2024 04/07/2023 Office Visit for Blood Pressure Check / Re-check 04/10/2024 04/10/2023 COVID-19 Vaccine (1 - 2022-2 4 season) 2024 Influenza Vaccine (#1) 2024 Colonoscopy 07/20/2025 07/20/2015 Colorectal Cancer Screening 07/20/2025 Fasting Glucose for Diabetes Screening 04/07/2026 04/07/2023 DTaP,Tdap,and Td Vaccines (3 - Td or Tdap) 12/26/2032 12/26/2022, 04/19/2013, 06/12/2003 Hepatitis B Vaccines Aged Out No long er eligible based on patient's age to complete this topic Pneumococcal vaccine (0-64 years) Aged Out No [...] 3:57 PM CDT 04/07/2023 4:31 PM CDT Miky Amos APRN.N.P., M.S. LAB BLO OD ADD-ON [facility] [address] [place] [address], [facility] DTL [facility] [address] [place] [address] from Last 3 Months or Most Recently Relevant to Health Maintenance Advance Directives For more information, please contact: [phone] * Full Code (Latest Code Status on File) Date Activated Date Inactivated Comments 04/12/2023 12:20 PM 04/12/2023 3:53 PM Question Answer Comments Full Code: Not Discussed Due to: Patient not available * Full Code Date Activated Date Inactivated Comments 04/12/2023 5:57 AM 04/12/2023 12:20 PM Question Answer Comments Full Code: Discussed Care Teams Yard Specialist Relationship Specialty Start Date End Date Elsewhere, Pcp PCP - General Internal Medicine 06/06/23
--- OUTSIDE RECORDS SUMMARY | 2024-07-04 11:42 | XMS_ITS ---
Author Name LINH PRAKASH Address Unknown Phone 1 Organization Unknown Address Unknown Phone 1 Care Team Providers Care Signal Person Name Role Phone MD LINH PRAKASH Attending [...] 12:44 9279-1 SpO2 % 97 09/14/2021 12:44 76651-4 Medications Administered Medication Start Date Dosage Route [...]
--- OUTSIDE RECORDS SUMMARY | 2024-07-04 11:42 | XMS_ITS | Clinical Summary ---
Author Organization [facility] Address [address] [place] [address] Care Team Providers Care Factory Engineer Name Role Phone Susannah Elizabeth MD Primary Care Provider [phone] Allergies Active Allergy Reactions Criticality Noted Date [...] T Respiratory Rate 16 11/07/2013 2:15 PM MORTUARY TECHNICIAN Oxygen Saturation 97% 07/25/2019 8:26 AM CDT Inhaled Oxygen Concentration - - Weight 99.9 kg (220 lb 3.2 oz) 07/25/2019 8:26 A M CDT Height 165.1 cm (5' 5) 07/25/2019 8:26 AM CDT Body Mass Index 36.64 07/25/2019 8:26 AM CDT Plan of Treatment Not on file Care Teams Factory Engineer Relationship Specialty Start Date End Date Susannah Elizabeth MD PCP - General Family Practice 11/07/13
--- OUTSIDE RECORDS SUMMARY | 2024-07-04 11:42 | XMS_ITS ---
Author Organization [facility] Address [address] [place] [address] Care Team Providers Care Stamping Die Try Out Worker Name Role Phone Unavailable Unavailable Unavailable Surgery Details Not on file Complications Check Surgery Details section. Procedure Estimated Blood Loss Check Surgery Details section. Procedure Findings Check Surgery Details section. Procedure Specimens Taken Check Surgery Details section.
--- OUTSIDE RECORDS SUMMARY | 2024-07-04 11:42 | XMS_ITS | Clinical Summary ---
Author Organization [employer] [facility] Address [place], [place] [address] Care Team Providers Care Child Nutrition Assistant Name Role Phone Susanna Shipley NP Primary Care Provider [phone] Active Problems Problem Noted Date Diagnosed Date [...] 2) 2014 COVID-19 vaccine series (2022- season) 2024 Influenza for age 50-64 06/30/2024 Pap test for age 21-65 11/01/2024 , 11/01/2021, 11/30/2017 Colonoscopy through age 75 07/20/202507/20, 07/20/2015, 07/20/2015 Pneumococcal series for age 6-64 Aged Out No longer eligible b ased on patient's age to complete this topic Procedures Procedure Name Priority Date/Time Associated Diagnosis Comments HPV THIN PREP Routine 11/01/2021 12:00 PM SERVICE AND REPAIR SUPERVISOR COLONOSCOPY SCREENING Routine 07/20/2015 12:00 AM CDT Special screening for malignant neoplasms, colon from Last 3 Months or Most Recently Relevant to Health Maintenance Results * HPV HIGH RISK (11/01/2021 12:00 PM SERVICE AND REPAIR SUPERVISOR) TYPE 16 Negative Negative 11/03/2021 11:56 AM SERVICE AND REPAIR SUPERVISOR [facility] TYPE 18 Negative Negative 11/03/2021 11:56 AM SERVICE AND REPAIR SUPERVISOR [facility] OTHER HIGH RISK TYPES Negative Negative 11/03/2021 11:56 AM SERVICE AND REPAIR SUPERVISOR [facility] Other (Cervical/Vagina l) 11/01/2021 12:00 PM SERVICE AND REPAIR SUPERVISOR 11/02/2021 8:25 AM SERVICE AND REPAIR SUPERVISOR Narrative [facility] - 11/03/2021 11:56 AM SERVICE AND REPAIR SUPERVISOR HPV types 16, 18, 31, 33, 35, 39, 45, 51, 52, 56, 58, 59, 66 and 68 DNA were undetectable or below the pre-set threshold. Methodology: Jose Juan Sena 4800 HPV Test January Shahbaz HALL MICROBIOLOGY [facility] [address] [place] [address], * COLONOSCOPY SCREENING (07/20/2015 12:00 AM CDT) Matthew Stover MD GI PROCEDURE ORD from Last 3 Months or Most Recently Relevant to Health Maintenance Care Teams Child Nutrition Assistant Relationship Specialty Start Date End Date Susanna Shipley NP [address] [facility] [place] [address] PCP - General Nurse Practitioner 07/01/15
--- OUTSIDE RECORDS SUMMARY | 2024-07-04 11:42 | XMS_ITS | Referral Summary ---
Author Organization [facility] Address [address] [place] [address] Care Team Providers Care E Merchant Name Role Phone Elsewhere, Pcp Primary Care Provider Unavailabl e Source Comments Patient records contain information from all sites at [facility]. For routine questions regarding patient records, call [phone] during business hours, M-F 8:00 AM - 5:00 PM Central Time. Record requests for emergency care only can be directed to [phone] at any time.[facility] Allergies Active Allergy Reactions Criticality Noted Date [...] Disease, Or Unspecified Chronic Kidney Disease 11/22/2017 Social History Tobacco Use Types Packs/Day [...] your living situation today? I have a [facility] place to live 06/01/2023 Sex and [...] APRN C.N.P., M.S. LAB BLO OD ADD-ON [facility] [address] [place] [address], [place] D[place] [facility] [address] [place] [address] from Last 3 Months or Most Recently Relevant to Health Maintenance Advance Directives For more information, please contact: [phone] * Full Code (Latest Code Status on File) Date Activated Date Inactivated Comments 04/12/2023 12:20 PM 04/12/2023 3:53 PM Question Answer Comments Full Code: Not Discussed Due to: Patient not available * Full Code Date Activated Date Inactivated Comments 04/12/2023 5:57 AM 04/12/2023 12:20 PM Question Answer Comments Full Code: Discussed Care Teams E Merchant Relationship Specialty Start Date End Date Elsewhere, Pcp PCP - General Internal Medicine 06/06/23
== END 2024-07-04 11:40 | disposition home or self-care (01) ==
PROVIDERS: PCP Physician Assistant Medical; Visit Provider Emergency Medicine
DX: I10 Essential (primary) hypertension (principal)
CPT/HCPCS: 80048

== ENCOUNTER 2024-07-12 06:28 | Day surgery (SDC) | payer OTHER, SELFPAY ==
[2024-07-12] VITALS (20 sets, daily range): BP systolic 106–127; BP diastolic 48–79; PULSE 55–106; RESP 12–26; TEMP 36.2–36.7; O2SAT 87–98; BMI 42.4
--- OUTSIDE RECORDS SUMMARY | 2024-07-12 06:31 | XMS_ITS | Referral Summary ---
Author Organization [facility] Address [address] [place] [address] Care Team Providers Care Burnisher Name Role Phone Susannah Elizabeth MD Primary Care Provider [phone] Allergies Active Allergy Reactions Criticality Noted Date [...] T Respiratory Rate 16 11/07/2013 2:15 PM MDM SR Oxygen Saturation 97% 07/25/2019 8:26 AM CDT Inhaled Oxygen Concentration - - Weight 99.9 kg (220 lb 3.2 oz) 07/25/2019 8:26 A M CDT Height 165.1 cm (5' 5) 07/25/2019 8:26 AM CDT Body Mass Index 36.64 07/25/2019 8:26 AM CDT Plan of Treatment Not on file Care Teams Burnisher Relationship Specialty Start Date End Date Susannah Elizabeth MD PCP - General Family Practice 11/07/13
--- OUTSIDE RECORDS SUMMARY | 2024-07-12 06:31 | XMS_ITS | Clinical Summary ---
Author Organization [facility] Address [address] [place] [address] Care Team Providers Care Admissions Dean Name Role Phone Elsewhere, Pcp Primary Care Provider Unavailabl e Source Comments Patient records contain information from all sites at [facility]. For routine questions regarding patient records, call [phone] during business hours, M-F 8:00 AM - 5:00 PM Central Time. Record requests for emergency care only can be directed to [phone] at any time.[facility] Allergies Active Allergy Reactions Criticality Noted [...] your living situation today? I have a [facility] place to live 06/01/2023 Sex and [...] Amos APRN.N.P., M.S. LAB BLO OD ADD-ON [facility] [address] [place] [address], [facility] DTL [facility]ly named [facility] [address] [place] [address] from Last 3 Months or Most Recently Relevant to Health Maintenance Advance Directives For more information, please contact: [phone] * Full Code (Latest Code Status on File) Date Activated Date Inactivated Comments 04/12/2023 12:20 PM 04/12/2023 3:53 PM Question Answer Comments Full Code: Not Discussed Due to: Patient not available * Full Code Date Activated Date Inactivated Comments 04/12/2023 5:57 AM 04/12/2023 12:20 PM Question Answer Comments Full Code: Discussed Care Teams Admissions Dean Relationship Specialty Start Date End Date Elsewhere, Pcp PCP - General Internal Medicine 06/06/23
--- OUTSIDE RECORDS SUMMARY | 2024-07-12 06:31 | XMS_ITS | Clinical Summary ---
Author Organization [facility] Address [address] [place] [address] Care Team Providers Care Water Valve Repairer Name Role Phone Susannah Elizabeth MD Primary Care Provider [phone] Allergies Active Allergy Reactions Criticality Noted Date [...] T Respiratory Rate 16 11/07/2013 2:15 PM DENTAL CERAMIST HELPER Oxygen Saturation 97% 07/25/2019 8:26 AM CDT Inhaled Oxygen Concentration - - Weight 99.9 kg (220 lb 3.2 oz) 07/25/2019 8:26 A M CDT Height 165.1 cm (5' 5) 07/25/2019 8:26 AM CDT Body Mass Index 36.64 07/25/2019 8:26 AM CDT Plan of Treatment Not on file Care Teams Water Valve Repairer Relationship Specialty Start Date End Date Susannah Elizabeth MD PCP - General Family Practice 11/07/13
--- OUTSIDE RECORDS SUMMARY | 2024-07-12 06:31 | XMS_ITS ---
Author Organization [facility] Address [address] [place] [address] Care Team Providers Care Drawing Tender Name Role Phone Unavailable Unavailable Unavailable Surgery Details Not on file Complications Check Surgery Details section. Procedure Estimated Blood Loss Check Surgery Details section. Procedure Findings Check Surgery Details section. Procedure Specimens Taken Check Surgery Details section.
--- OUTSIDE RECORDS SUMMARY | 2024-07-12 06:31 | XMS_ITS | Referral Summary ---
Author Organization [facility] Address [address] [place] [address] Care Team Providers Care System Sales Consultant Name Role Phone Elsewhere, Pcp Primary Care Provider Unavailabl e Source Comments Patient records contain information from all sites at [facility]. For routine questions regarding patient records, call [phone] during business hours, M-F 8:00 AM - 5:00 PM Central Time. Record requests for emergency care only can be directed to [phone] at any time.[facility] Allergies [...] your living situation today? I have a [facility] place to live 06/01/2023 Sex and Gender [...] APRN C.N.P., M.S. LAB BLO OD ADD-ON [facility] [address] [place] [address], [place] D[place] [facility] [address] [place] [address] from Last 3 Months or Most Recently Relevant to Health Maintenance Advance Directives For more information, please contact: [phone] * Full Code (Latest Code Status on File) Date Activated Date Inactivated Comments 04/12/2023 12:20 PM 04/12/2023 3:53 PM Question Answer Comments Full Code: Not Discussed Due to: Patient not available * Full Code Date Activated Date Inactivated Comments 04/12/2023 5:57 AM 04/12/2023 12:20 PM Question Answer Comments Full Code: Discussed Care Teams System Sales Consultant Relationship Specialty Start Date End Date Elsewhere, Pcp PCP - General Internal Medicine 06/06/23
--- OUTSIDE RECORDS SUMMARY | 2024-07-12 06:31 | XMS_ITS ---
Author Name LINH PRAKASH Address Unknown Phone 1 Organization Unknown Address Unknown Phone 1 Care Team Providers Care Lamination Inspector Name Role Phone MD LINH PRAKASH Attending [...] 12:44 9279-1 SpO2 % 97 09/14/2021 12:44 30761-8 Medications Administered Medication Start Date Dosage Route [...]
--- OUTSIDE RECORDS SUMMARY | 2024-07-12 06:31 | XMS_ITS | Clinical Summary ---
Author Organization [facility] Address [place], [place] [address] Care Team Providers Care Mlt Name Role Phone Susanna Shipley NP Primary Care Provider [phone] Active Problems Problem Noted Date Diagnosed Date Routine adult health maintenance 07/20/2015 Overview (07/20/2015): Colonoscopy 06/2015 diverticulosis repeat in 10 years [...] 2) 2014 COVID-19 vaccine series (2022-24 season) 2024 Influenza for age 50-64 06/30/2024 Pap test for age 21-65 11/01/2024 , 11/01/2021, 11/30/2017 Colonoscopy through age 75 07/20/202507/20, 07/20/2015, 07/20/2015 Pneumococcal series for age 6-64 Aged Out No longer eligible b ased on patient's age to complete this topic Procedures Procedure Name Priority Date/Time Associated Diagnosis Comments HPV THIN PREP Routine 11/01/2021 12:00 PM VP OF CUSTOMER EXPERIENCE STRATEGY COLONOSCOPY SCREENING Routine 07/20/2015 12:00 AM CDT Special screening for malignant neoplasms, colon from Last 3 Months or Most Recently Relevant to Health Maintenance Results * HPV HIGH RISK (11/01/2021 12:00 PM VP OF CUSTOMER EXPERIENCE STRATEGY) TYPE 16 Negative Negative 11/03/2021 11:56 AM VP OF CUSTOMER EXPERIENCE STRATEGY [facility] TYPE 18 Negative Negative 11/03/2021 11:56 AM VP OF CUSTOMER EXPERIENCE STRATEGY [facility] OTHER HIGH RISK TYPES Negative Negative 11/03/2021 11:56 AM VP OF CUSTOMER EXPERIENCE STRATEGY [facility] Other (Cervical/Vagina l) 11/01/2021 12:00 PM VP OF CUSTOMER EXPERIENCE STRATEGY 11/02/2021 8:25 AM VP OF CUSTOMER EXPERIENCE STRATEGY Narrative [facility] - 11/03/2021 11:56 AM VP OF CUSTOMER EXPERIENCE STRATEGY HPV types 16, 18, 31, 33, 35, 39, 45, 51, 52, 56, 58, 59, 66 and 68 DNA were undetectable or below the pre-set threshold. Methodology: Jose Juan Sena 4800 HPV Test Marie Shahbaz [facility] [address] [place] [address], * COLONOSCOPY SCREENING (07/20/2015 12:00 AM CDT) Matthew Stover MD GI PROCEDURE ORD from Last 3 Months or Most Recently Relevant to Health Maintenance Care Teams Mlt Relationship Specialty Start Date End Date Susanna Shipley NP [address] [facility] [place] [address] PCP - General Nurse Practitioner 07/01/15
[2024-07-12] MEDS: LACTATED RINGERS 1000 ML 1,000 ML 100 ML IV (07:25)
[2024-07-12] MEDS: MIDAZOLAM HCL 1 MG/ML inj IVP (07:58)
[2024-07-12] MEDS: fentaNYL 100 MCG/2 ML inj IVP (07:58)
[2024-07-12] MEDS: SODIUM CHLORIDE 0.9 % (FLUSH) 10 ML SYRINGE IVF (08:02)
--- NOTE | 2024-07-12 08:03 | SUR.PREOP ---
TIME?OUT:?0757 PT/RN/MDA?VERIFICATION?OF?SURGICAL?SITE,?PROCEDURE,?AND?CONSENT OBTAINED?PRIOR?TO?INVASIVE?PROCEDURE.
--- NOTE | 2024-07-12 08:12 | W.PM.H&PU ---
History & Physical Update History & Physical Update H&P Reviewed and patient assessed: No changes noted
--- NOTE | 2024-07-12 08:13 | P.ORPRC_ITS ---
Procedure Note Date of procedure: 07/12/24 Procedure: PREOPERATIVE DIAGNOSES: 1. Right shoulder rotator cuff tear. 2. Right shoulder acromioclavicular joint osteoarthritis. 3. Right shoulder subacromial impingement syndrome. 4. Right shoulder biceps tendinosis POSTOPERATIVE DIAGNOSES: 1. Right shoulder rotator cuff tear (supraspinatus and upper subscapularis). 2. Right shoulder acromioclavicular joint osteoarthritis. 3. Right shoulder subacromial impingement syndrome. 4. Right shoulder biceps tendinosis. 5. Right shoulder superior labral tear type 1 NAME OF OPERATION: 1. Right shoulder arthroscopic rotator cuff repair (supraspinatus and upper subscapularis). 2. Right shoulder arthroscopic biceps tenodesis 3. Right shoulder arthroscopic distal clavicle excision 4. Right shoulder arthroscopic subacromial bursectomy, subacromial decompression, and limited debridement. SURGEON: Walker Luque MD ORANGE PICKER MACHINE OPERATOR: Yuli Jacinto P.A.-C.. An library services assistant was critical for this case to aide in patient positioning, suture manipulation, arm positioning, instrument positioning, and closure. ANESTHESIA: General plus preoperative regional nerve block. IMPLANTS: Arthrex 4.75 mm knotless loop and tack tenodesis implant system; Arthrex knotless 2.6 mm FiberTak anchors x2; Arthrex 4.75 mm BioComposite SwiveLock anchors x2. COMPLICATIONS: None ESTIMATED BLOOD LOSS: 15 mL INDICATIONS: The patient is a pleasant, 59-year-old female who has experienced right shoulder pain and weakness since an injury that she sustained 1 month ago. Physical exam and radiographic imaging were consistent with rotator cuff tear, acromioclavicular joint arthritis. Given these findings and failure to improve with nonoperative management, recommendation was made for surgery. FINDINGS: Exam under anesthesia revealed stable shoulder with full range of motion. The diagnostic arthroscopy revealed mild chondromalacia of the glenoid with normal appearing cartilage of the humeral head. There was partial- thickness tear of the upper subscapularis with medial subluxation of the biceps tendon. Mild biceps tendinosis and degenerative tearing of the superior labrum near the biceps tendon attachment. Anterior posterior labrum were intact. Complete tear of the supraspinatus which measured approximately 2 cm anterior to posterior direction and was retracted medially approximately 2 cm. No loose bodies were identified within the pouch or subscapularis recess. Diffuse subacromial bursitis with downsloping anterior acromion. Moderate degenerative changes of the acromioclavicular joint. PROCEDURE: Following a thorough discussion of risks, benefits, and alternativ es, consent was obtained and the operative shoulder was marked. A regional nerve block was performed by anesthesia staff in preop holding. The patient was brought to the operating room and placed supine on the operating table. Induction of anesthesia was completed, and patient was given IV Ancef preoperatively for prophylaxis. A surgical time-out was performed confirming patient identity, surgical site, and procedure. Patient was placed into the beach chair position. Head was placed in padded cotton header in neutral alignment, and all bony prominences were well padded. The operative shoulder and upper extremity were prepped and draped in the appropriate sterile fashion using ChloraPrep. The glenohumeral joint was injected with 40 mL of normal saline using and 18g spinal needle from a posterior approach. Posterior portal was established. Anterior portal was established after localization with a spinal needle and a 7.0 mm cannula was placed here. Diagnostic arthroscopy was then performed with findings as noted above.. There was a partial-thickness tear of the upper subscapularis and biceps tendon was subluxed medially into the tear. Decision was subsequently made to proceed with biceps tenodesis. Using the Curtis stitch suture Passer a FiberLink suture was passed around the biceps tendon and through the biceps tendon. Biceps tenotomy was then performed using arthroscopic scissors. Biceps tenodesis was then completed by placing the FiberLink suture into a 4.75 mm knotless BioComposite SwiveLock anchor in the proximal aspect of the bicipital groove.. The knotless sutures were then passed through the upper subscapularis to repair the upper subscapularis tear. After completion remnant sutures were cut and removed. The subscapularis was noted be firmly attached to its footprint and biceps was firmly secured. The degenerative tearing of the superior labrum was debrided and after debridement labrum was probed and confirmed to be stable. Camera was then moved into the subacromial space. Lateral portal was established after localization of spinal needle. Subacromial bursectomy was performed using arthroscopic shaver and radiofrequency ablator. Partial acromioplasty was then performed the bone-cutting shaver. Attention was then directed to repair of the rotator cuff. A Passport cannulas placed into the lateral portal. The footprint of the supraspinatus was lightly decorticated with a bone-cutting shaver. Two small stab incisions were then placed off the lateral aspect of the acromion. Through these incisions 2.6 mm knotless FiberTak anchors were placed into the anterior medial and posterior medial aspects of the footprint. FiberLink suture was then passed through the rotator cuff lateral to the musculotendinous junction and used to shuttle each set of sutures through the rotator cuff. Medial row repair was then completed using the knotless sutures. A lateral row repair was then completed by placing 4.75 mm BioComposite SwiveLock anchors lateral to the rotator cuff footprint. Each SwiveLock anchor contained 1 FiberTape from the previously placed medial row anchors. After sutures were tension SwiveLock anchors were secured into position. Remnant sutures were then cut and removed. The medial knotless sutures were tensioned a final time. These remnant sutures were then cut and removed. Cuff was then inspected and noted to be well tensioned and securely fixed back to its footprint. Attention was then directed to the distal clavicle excision. AC joint was cleared of soft tissue using the radiofrequency ablator. A distal clavicle excision was then performed using the 5.5 mm bur. Proximal 1 cm of distal clavicle was removed. The 70 scope was utilized during this portion of procedure to confirm complete removal of the distal clavicle. Surgical instruments and cannulas were then removed, and excess fluid was removed the subacromial space. Portal sites were closed with 3-0 nylon simple interrupted sutures. Sterile dressings were applied and arm was placed into an abduction sling. Patient was then rotated supine position woken from anesthesia and transferred to recovery room in stable condition. PLAN: 1. Discharged to home day of surgery. 2. Ice for pain and swelling. 3. Tylenol and oxycodone as needed for pain control. 4. Abduction sling at all times except for ROM and showering. -Remove sling several times daily for pendulum exercises finger, wrist, and elbow range of motion. 5. Follow-up in orthopedic clinic in 10-14 days for wound check and suture removal. 6. Will initiate formal physical therapy 2 weeks postoperatively per the standard rotator cuff repair protocol.
[2024-07-12] MEDS: EPINEPHrine 1 MG in SODIUM CHLORIDE IRRIG SOLUTION 3,000 ML 9003 MG IRRIGATION ×2 (09:50→10:10)
--- NOTE | 2024-07-12 10:02 | P.NB_ITS ---
Nerve Block Nerve Block Time Seen by Provider: 08:00 Date Seen: 07/12/24 Type of block requested by surgeon for post-operative analgesia: supraclavicular Side: right Time out performed: Yes Verification of patient name: Yes Verification of date of : Yes Site marking: site marked Name of person performing procedure: Tenzin Continuous monitoring Was continuous monitoring of O2 sat, B/P, surveillance system monitor, recorded every 15 minutes?: Yes Procedure Checklist: sterile prep, needles and gloves Ultrasound guided. Images saved: Yes Medications given in 5ml increments after negative aspiration: Ropivicaine %: 0.5 mL: 20 Needle gauge: 22 Decadron (mg): 10 Precedex (mcg): 25 Patient tolerated procedure well: Yes Block Charges Block Charge (with Pro Fee): Brachial Plexus Use of Ultrasound Machine for Block: Yes- US Guidance/pain block
--- NOTE | 2024-07-12 10:03 | W.ANESCHARGE ---
Anesthesia Charges Start Date/Time Anesthesia Start Date: 07/12/24 Anesthesia Start Time: 09:27 Stop Date/Time Anesthesia Stop Date: 07/12/24 Anesthesia Stop Time: 12:57
[2024-07-12] MEDS: CEFAZOLIN 2 GM INJ IVP (10:05)
[2024-07-12] MEDS: EPINEPHrine 1 MG in SODIUM CHLORIDE IRRIG SOLUTION 3,000 ML 3001 MG IRRIGATION ×5 (10:25→11:40)
--- NOTE | 2024-07-12 10:44 | SUR.OPER ---
PATIENT QUESTIONS ANSWERED SATISFACTORILY PREOPERATIVELY. PATIENT BROUGHT TO OR #3 PER CART FOLLOWING THE BLOCK. Patient positioned supine on OR #3 bed for the intubation.? Perioperative team wrapped the left arm in a neutral position on the pt. abdomen with the drawsheet. Right arm elevated on an IV pole in a padded strap. Final approval of positioning by surgeon. CONTINUOUS IRRIGATION OF THE LEFT SHOULDER WITH MIXTURE OF 3000 NACL AND 1mg OF EPINEPHRINE DURING PROCEDURE.
--- NOTE | 2024-07-12 13:10 | W.ANESCHARGE ---
Anesthesia Charges Start Date/Time Anesthesia Start Date: 07/12/24 Anesthesia Start Time: 09:27 Stop Date/Time Anesthesia Stop Date: 07/12/24 Anesthesia Stop Time: 12:57
[2024-07-12] MEDS: METOCLOPRAMIDE HCL 5 MG/ML INJ 10 MG IVP (13:30)
[2024-07-12] MEDS: ACETAMINOPHEN 500 MG TABLET 1000 MG PO (14:33)
--- NOTE | 2024-07-12 14:47 | SUR.PHASEII ---
Pt tolerated water, saltine crackers. Placed Q-Easy nausea patch on patient. Patient reported feeling less nausea after her dose of Reglan given in PACU. here at 1400.
--- NOTE | 2024-07-12 15:20 | SUR.PHASEII ---
Pt did have an episode of incontinence. Dr. Luque rounded on patient and in Phase II. Pt verbalized readiness to be discharged. Patient and verbalized understanding of discharge instructions.
== END 2024-07-12 15:23 | disposition home or self-care (01) ==
PROVIDERS: PCP Physician Assistant Medical; Visit Provider Orthopaedic Surgery
PROC: (CPT 29805; principal; 2024-07-12 08:30)
DX: S46.011A Strain of muscle(s) and tendon(s) of the rotator cuff of right shoulder, initial encounter (principal); M19.011 Primary osteoarthritis, right shoulder; M75.41 Impingement syndrome of right shoulder; M75.21 Bicipital tendinitis, right shoulder; S43.431A Superior glenoid labrum lesion of right shoulder, initial encounter; G89.18 Other acute postprocedural pain
CPT/HCPCS: 29827; 29828; 29826; 29824; 01630; 64415; 76942; A9270; C1713; J0171; J0330; J0690; J1100; J2250; J2371; J2405; J2704; J2765; J2795; J3010; J3490; J7120; L3670

== ENCOUNTER 2024-10-17 13:45 | Outpatient (RCR) | payer OTHER, SELFPAY ==
--- OUTSIDE RECORDS SUMMARY | 2024-10-17 13:50 | XMS_ITS ---
Author Name LINH PRAKASH Address Unknown Phone 1 Organization Unknown Address Unknown Phone 1 Care Team Providers Care Nurse Companion Name Role Phone MD LINH PRAKASH Attending [...] 12:44 9279-1 SpO2 % 97 09/14/2021 12:44 [id number] Medications Administered Medication Start Date Dosage Route [...]
== END 2025-02-14 23:59 | disposition home or self-care (01) ==
PROVIDERS: PCP Physician Assistant Medical; Visit Provider Orthopaedic Surgery
DX: Z47.89 Encounter for other orthopedic aftercare (principal); Z51.89 Encounter for other specified aftercare
CPT/HCPCS: 97110; 97140; 97162

== ENCOUNTER 2025-02-11 08:56 | Outpatient (CLI) | payer OTHER, SELFPAY | END 2025-02-11 08:57 | disposition home or self-care (01) | LOC: NFLDREF 02-14 15:57 | PROVIDERS: PCP Physician Assistant Medical; Referring Provider Physician Assistant Medical; Visit Provider Physician Assistant Medical | DX: E03.9 Hypothyroidism, unspecified (principal); R73.03 Prediabetes; R80.9 Proteinuria, unspecified; D64.9 Anemia, unspecified | CPT/HCPCS: 80053; 82043; 82570; 82728; 83540; 83550; 84443; 87086 ==

== ENCOUNTER 2025-03-25 13:55 | Outpatient (CLI) | payer OTHER, SELFPAY ==
--- NOTE | 2025-03-25 15:30 | CRLHL7_ITS ---
For Patients: As a result of the Century Cures Act, medical imaging exams and procedure reports are released immediately into your electronic medical record. You may view this report before your referring provider. If you have questions, please contact your health care provider. INDICATION: RLQ PAIN TECHNIQUE: CT abdomen and pelvis acquired with 122 cc Isovue 370 IV contrast. COMPARISON: None. FINDINGS: Lower chest: The visualized lower lungs are aerated. No pleural or pericardial effusion. ABDOMEN: Liver: Normal enhancement. No focal suspicious hepatic lesions. Gallbladder and biliary: Normal gallbladder without radiopaque stone. Normal caliber bile ducts. Spleen: Normal size and enhancement. Pancreas: Normal enhancement without peripancreatic inflammatory changes or ductal dilatation. Adrenal glands: Normal adrenal glands. Kidneys and ureters: Normal enhancement. No radio-opaque calculi. No hydroureteronephrosis. Subcentimeter hypodensities are too small to characterize however statistically represent cysts. GI tract: Small hiatal hernia normal caliber small and large bowel loops. Normal appendix. Colonic diverticulosis with associated adjacent inflammatory stranding abutting the distal sigmoid/high rectum. Vascular structures: Normal caliber abdominal aorta. Lymph nodes: No lymphadenopathy in the abdomen or pelvis by size criteria. Peritoneum: No free air, trace free fluid, no focal drainable fluid collection. PELVIS: Genitourinary system: Urinary bladder is relatively decompressed. Hysterectomy. SKELETAL STRUCTURES AND SOFT TISSUES: Lumbar spondylosis. IMPRESSION: Acute uncomplicated distal sigmoid/high rectal diverticulitis. Please note that all CT scans at this facility use dose modulation, iterative reconstruction, and/or weight-based dosing when appropriate to reduce radiation dose to as low as reasonably achievable. Dictated by Rai Pearson MD @ 03/25/2025 4:23:18 PM (Electronically Signed)
== END 2025-03-25 13:56 | disposition home or self-care (01) ==
PROVIDERS: PCP Physician Assistant Medical; Visit Provider Emergency Medicine
DX: R10.31 Right lower quadrant pain (principal); R73.03 Prediabetes; K57.32 Diverticulitis of large intestine without perforation or abscess without bleeding; I12.9 Hypertensive chronic kidney disease with stage 1 through stage 4 chronic kidney disease, or unspecified chronic kidney disease; N18.9 Chronic kidney disease, unspecified; E66.01 Morbid (severe) obesity due to excess calories; E03.9 Hypothyroidism, unspecified
CPT/HCPCS: 74177; 86140; 87086; Q9967

== ENCOUNTER 2025-07-24 08:34 | Outpatient (CLI) | payer OTHER, SELFPAY ==
--- NOTE | 2025-07-24 10:31 | P.ANES_ITS ---
Anesthesia Charges Start Date/Time Anesthesia Start Date: 07/24/25 Anesthesia Start Time: 09:30 Stop Date/Time Anesthesia Stop Date: 07/24/25 Anesthesia Stop Time: 10:24 Coding CPT Codes CPT Codes: ANES UPR LWR GI NDSC PX - 49132 ([id number]) P3 - PATIENT W/SEVERE SYS DISEASE, QZ - WORK MANAGER SVC W/O GEOSPATIAL SPECIALIST BY
--- NOTE | 2025-07-24 10:31 | W.ANESCHARGE ---
Anesthesia Charges Start Date/Time Anesthesia Start Date: 07/24/25 Anesthesia Start Time: 09:30 Stop Date/Time Anesthesia Stop Date: 07/24/25 Anesthesia Stop Time: 10:24 Coding CPT Codes CPT Codes: ANES UPR LWR GI NDSC PX - 45063 ([id number]) P3 - PATIENT W/SEVERE SYS DISEASE, QZ - FOREIGN CORRESPONDENT SVC W/O KETTLE HAND BY
--- NOTE | 2025-07-24 10:55 | P.ANES_ITS ---
Anesthesia Charges Start Date/Time Anesthesia Start Date: 07/24/25 Anesthesia Start Time: 09:30 Stop Date/Time Anesthesia Stop Date: 07/24/25 Anesthesia Stop Time: 10:24 Coding CPT Codes CPT Codes: ANES UPR LWR GI NDSC PX - 62191 ([id number]) QK - ANIMAL ANATOMY TEACHER 2-4 CNCRNT ANES PROC, QX - SPIRITUAL COUNSELOR SVC W/ MED DIRECTION, P3 - PATIENT W/SEVERE SYS DISEASE
--- NOTE | 2025-07-24 10:55 | W.ANESCHARGE ---
Anesthesia Charges Start Date/Time Anesthesia Start Date: 07/24/25 Anesthesia Start Time: 09:30 Stop Date/Time Anesthesia Stop Date: 07/24/25 Anesthesia Stop Time: 10:24 Coding CPT Codes CPT Codes: ANES UPR LWR GI NDSC PX - 03674 ([id number]) QK - LENS MOUNTER 2-4 CNCRNT ANES PROC, QX - ACUPUNCTURIST SVC W/ MED DIRECTION, P3 - PATIENT W/SEVERE SYS DISEASE
== END 2025-07-24 08:35 | disposition home or self-care (01) ==
LOC: OP CLINIC 08:35
PROVIDERS: PCP Physician Assistant Medical; Visit Provider Surgery
DX: Z12.11 Encounter for screening for malignant neoplasm of colon (principal); D12.2 Benign neoplasm of ascending colon; D12.3 Benign neoplasm of transverse colon; K21.9 Gastro-esophageal reflux disease without esophagitis; Z86.0100 Personal history of colon polyps, unspecified; K57.30 Diverticulosis of large intestine without perforation or abscess without bleeding; K44.9 Diaphragmatic hernia without obstruction or gangrene; K31.7 Polyp of stomach and duodenum
CPT/HCPCS: 00813; 43239; 45385; 88305; J2371; J2704; J3490